=== PATIENT | female | born 1975 | race Caucasian/White ===

== ENCOUNTER 2020-10-19 21:10 | Emergency (ER) | payer OTHER ==
[2020-10-19 22:02] VITALS: BP 112/77; PULSE 80; TEMP 98.6; BMI 25.2
[2020-10-20] MEDS ORDERED: DIPHTH,PERTUSS(ACELL),TET 0.5 ML DISP.SYRIN IM ONE ×2 (00:16→00:38)
[2020-10-20] MEDS ORDERED: AMOX TR/POT CLAV 875MG/125MG TABLETS (FP) PO ONE (00:16)
[2020-10-20] MEDS ORDERED: AMOX TR/POT CLAV 875MG/125MG TABLETS (FP) ONE (00:38)
[2020-10-20] MEDS ORDERED: RABIES IMMUNE GLOBULIN 300 UNITS/1 ML VIAL IM ONE (00:59)
[2020-10-20] MEDS ORDERED: RABIES VACCINE (PCEC)/PF 2.5 UNIT/VIAL IM ONE (00:59)
== END 2020-10-20 01:33 | disposition home or self-care (01) ==
LOC: JER 21:10
PROC: 3E0234Z Introduction of Serum, Toxoid and Vaccine into Muscle, Percutaneous Approach (ICD-10-PCS; principal; 2020-10-19)
PROC: 3E0234Z Introduction of Serum, Toxoid and Vaccine into Muscle, Percutaneous Approach (ICD-10-PCS; 2020-10-19)
DX: S81.851A Open bite, right lower leg, initial encounter (principal); S81.852A Open bite, left lower leg, initial encounter
CPT/HCPCS: 90715; 99284-25